=== PATIENT | male | born 1965 | race Caucasian/White ===

== ENCOUNTER → 2018-06-19 | Outpatient (CLI) | payer BC ==
[~2018-06-19] MED LIST: TRAM50TA PO; WARF-78 PO
--- NOTE | 2018-06-22 03:06 | RAD ---
MRI left knee without contrast dated 06/19/2018. No comparison available. CLINICAL INDICATION: Knee pain. TECHNIQUE: Routine multiplanar multisequence MR imaging performed. FINDINGS: Moderate tricompartmental hypertrophic change with prominent marginal osteophytes. Thinning and surface irregularity of the articular cartilage throughout. Full-thickness cartilage loss throughout the weightbearing surfaces medial femoral condyle and medial tibial plateau with patchy subchondral edema. There is also moderate cartilage thinning of the medial patellar facet and medial femoral trochlea. Small suprapatellar joint effusion. 3 mm loose body at the posterior medial joint space. Small popliteal cyst. The anterior cruciate ligament is partially visualized and irregular in orientation. There is some increased signal at the intercondylar notch. The PCL is intact. Medial and lateral collateral complexes are intact. Iliotibial band, popliteus tendon and pes anserine complex within normal limits. Quadriceps and patellar tendon are intact. There is mild increased signal within the substance of the proximal patellar tendon. No abnormality of the medial or lateral retinaculum. Horizontal oblique tear posterior horn of medial meniscus there is probable involvement of the meniscal root with possible small meniscal fragment in the region. There is blunted morphology of the posterior horn and body. The medial meniscal body is slightly extruded into the medial gutter. Lateral meniscus is normal in morphology and signal. IMPRESSION: 1. Complex tear posterior horn/body of medial meniscus 2. Moderate tricompartmental degenerative arthrosis and chondral malacia. There is full-thickness cartilage loss throughout the medial compartment. 3. Small joint effusion and small popliteal cyst. Probable small loose body at the posterior joint space. 4. Ill-definition of the anterior cruciate ligament which could be related to chronic tear and/or severe mucoid degeneration. Correlate with physical exam findings. Electronically signed by: Issa Morales MD (06/22/2018 3:03 AM) [facility]
== END | disposition home or self-care (01) ==
LOC: MRI 15:29
PROVIDERS: ATTEND Orthopaedic Surgery
DX: M17.12 Unilateral primary osteoarthritis, left knee (principal); M25.462 Effusion, left knee; M71.22 Synovial cyst of popliteal space [Baker], left knee; M25.762 Osteophyte, left knee; R60.0 Localized edema
CPT/HCPCS: 73721

== ENCOUNTER → 2018-08-10 | Outpatient (CLI) | payer BC ==
[2018-08-10 09:06] LABS: BILIRUBIN,URINE NEGATIVE (NEG); CLARITY,URINE CLEAR; COLOR,URINE YELLOW; NITRITE,URINE NEGATIVE (NEG); PROTEIN,URINE NEGATIVE (NEG-TRACE); UROBILINOGEN,URINE 0.2 mg/dL (0.2 mg/dL)
[2018-08-10 09:30] LABS: BACTERIA,URINE 0 /HPF (0-FEW); RBC,URINE 0 /HPF (0-2); SQUAMOUS EPITHELIAL CELL,UR MANY /LPF; WBC,URINE OCC /HPF (0-4)
[2018-08-10 10:00] LABS: BASO % 0 % (0-3); EOS # 0.2 x10^3/uL (0.0-0.7); EOS % 3 % (0-3); HEMATOCRIT 48.1 % (39.0-53.0); HEMOGLOBIN 16.2 g/dL (13.0-17.5); LYMPH # 1.4 x10^3/uL (1.0-4.8); LYMPH % 22 % (24-48); MEAN CORPUSCULAR HEMOGLOBIN 32 pg (25-35); MEAN CORPUSCULAR HGB CONC 34 g/dL (31-37); MEAN CORPUSCULAR VOLUME 95 fL (79-100); MONO # 0.6 x10^3/uL (0.0-1.1); MONO % 9 % (0-9); NEUT # 4.4 x10^3uL (1.8-7.7); NEUT % 66 % (31-73); PLATELET COUNT 206 x10^3/uL (140-400); RED BLOOD COUNT 5.04 x10^6/uL (4.30-5.70); RED CELL DISTRIBUTION WIDTH 13.6 % (11.5-14.5); WHITE BLOOD COUNT 6.6 x10^3/uL (4.0-11.0)
[2018-08-10 10:11] LABS: PROTHROMBIN TIME PATIENT 13.1 SEC (11.7-14.0)
[2018-08-10 10:12] LABS: CALCIUM 9.3 mg/dL (8.5-10.1); CREATININE 1.1 mg/dL (0.7-1.3); GFR 70.3; POTASSIUM 4.5 mmol/L (3.5-5.1)
--- NOTE | 2018-08-10 13:56 | EKG ---
[facility] [address] [place] [address] Test Date: 2018-08-10 Test Time: 13:33:37 Pat Name: MARVEL AVENDANO Department: Room: Gender: M Senior Technical Manager: AT : 1965 Requested By: JOELLEN CRAVEN Order Number: [id number] Reading MD: Roverto Ramirez MD Measurements Intervals [place] Rate: 76 P: 48 IA: 154 QRS: 9 QRSD: 92 T: 37 QT: 334 QTc: 379 Interpretive Statements SINUS RHYTHM Electronically Signed On 08-13-2018 11:09:10 CDT by Roverto Ramirez MD
--- NOTE | 2018-08-10 17:24 | RAD ---
CHEST PA LATERAL Technique: PA and lateral views of the chest were obtained. Clinical History: PRE OP LT KNEE REPLACEMENT ON 08/25/18, PT IS A SMOKER Comparison: None. Findings: The heart and pulmonary vasculature appear within normal limits. The lungs are clear. The pleural margins are clear. Impression: No acute chest process is seen. Electronically signed by: Guille Lacy III, MD (08/10/2018 5:21 PM) [facility]
== END | disposition home or self-care (01) ==
LOC: SURGPAT 14:25
PROVIDERS: ATTEND Orthopaedic Surgery
DX: Z01.818 Encounter for other preprocedural examination (principal); Z87.891 Personal history of nicotine dependence
CPT/HCPCS: 36415; 71046; 80048; 81001; 82040; 82306; 85025; 85610; 85651; 85730; 87641; 93005

== ENCOUNTER 2018-08-25 06:04 | Inpatient (IN) | payer BC ==
[~2018-08-25] VITALS: Ht 175.3 cm; Wt 102.1 kg
[2018-08-25] VITALS (9 sets, daily range): BP systolic 114–140; BP diastolic 80–98
[~2018-08-25 06:04] MED LIST changes: +MORPHINE SULFATE 5 MG, KETOROLAC 30MG VIAL 30 MG, ROPIVacaine 0.5% PF 60 ML, EPINEPHrin... INT ART ONE; -TRAM50TA PO; +TRANEXAMIC ACID 1,000 MG in IV NORMAL SALINE 50ML 50 ML INJ ONE; -WARF-78 PO
[2018-08-25] MEDS ORDERED: MELOXICAM 7.5 MG TABLET PO ONE (06:54)
[2018-08-25] MEDS ORDERED: HYDROcodone/APAP 7.5/325MG 1 TAB TABLET ONE (06:55)
[2018-08-25] MEDS ORDERED: IV RINGERS,LACTATED 1000ML 1,000 ML IV SCH (07:00)
[2018-08-25] MEDS ORDERED: fentaNYL PF VIAL 100 MCG/2 ML VIAL IV PRN ×2 (07:00→07:45)
[2018-08-25] MEDS ORDERED: MORPHINE SULFATE 2 MG/ML VIAL. IV PRN ×2 (07:00→07:45)
[2018-08-25] MEDS ORDERED: PROCHLORPERAZINE 10 MG/2 ML VIAL. IV PRN (07:00)
[2018-08-25] MEDS ORDERED: HYDROmorphone 2 MG/ML VIAL IV PRN (07:00)
[2018-08-25] MEDS ORDERED: ONDANSETRON PF 4 MG/2 ML VIAL. IV PRN (07:00)
[2018-08-25] MEDS ORDERED: ROCURONIUM 50 MG/5 ML VIAL. ONE (07:14)
[2018-08-25] MEDS ORDERED: fentaNYL PF VIAL 100 MCG/2 ML VIAL ONE ×2 (07:14→10:26)
[2018-08-25] MEDS ORDERED: ONDANSETRON PF 4 MG/2 ML VIAL. ONE (07:14)
[2018-08-25] MEDS ORDERED: LIDOCAINE 2% PF 5 ML VIAL. ONE (07:14)
[2018-08-25] MEDS ORDERED: PROPOFOL 20 ML IV ONE (07:14)
[2018-08-25] MEDS ORDERED: MIDAZOLAM HCL/PF 2 MG/2 ML VIAL. ONE (07:14)
[2018-08-25] MEDS ORDERED: DEXAMETHASONE SOD PHOS 4 MG/ML VIAL ONE ×2 (07:14→07:15)
[2018-08-25] MEDS ORDERED: HYDROcodone/APAP 7.5/325MG 1 TAB TABLET PO ONE (07:30)
[2018-08-25] MEDS ORDERED: diphenhydrAMINE 50 MG/ML VIAL IV PRN (07:45)
[2018-08-25] MEDS ORDERED: 0.9 % SODIUM CHLORIDE 10 ML DISP.SYRIN. IV PRN (07:45)
[2018-08-25] MEDS ORDERED: METOCLOPRAMIDE HCL 10 MG/2 ML VIAL. IV PRN (07:45)
[2018-08-25] MEDS ORDERED: CALCIUM CARBONATE 500 MG TAB.CHEW PO PRN (07:45)
[2018-08-25] MEDS ORDERED: DEXTROSE 50% 25 GM / 50ML DISP.SYRIN. IV PRN (07:45)
[2018-08-25] MEDS ORDERED: PROCHLORPERAZINE 5 MG TABLET. PO PRN (07:45)
[2018-08-25] MEDS ORDERED: ZOLPIDEM 5 MG TABLET. PO PRN (07:45)
[2018-08-25] MEDS ORDERED: TRANEXAMIC ACID 1,000 MG in IV NORMAL SALINE 50ML 50 ML INJ ONE (08:00)
--- NOTE | 2018-08-25 08:14 | PREOP HP ---
DATE OF SERVICE: 08/25/2018 CHIEF COMPLAINT: Left knee DJD and pain. HISTORY: The patient is well known to me from previous nonoperative treatment of an ACL injury with bracing many years ago. He has ongoing left knee pain, bothers him with increased activities and he notes pain, swelling and instability. Bracing initially was effective for him, but is not now. 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 PAST MEDICAL AND FAMILY HISTORY: He denies any significant past medical or family history. SOCIAL HISTORY: Denies alcohol or drug use, some smoking. MEDICATIONS: No medications. ALLERGIES: No known drug allergies. REVIEW OF SYSTEMS: Denies any chest pain, fever, chills, constitutional symptoms of any type aside from the left knee pain. PHYSICAL EXAMINATION: GENERAL: Height 69, weight 225, BMI 33. VITAL SIGNS: Stable per his admission note, temp afebrile. HEENT: Atraumatic, normocephalic. HEART: Regular rate and rhythm. LUNGS: Clear to auscultation bilaterally. ABDOMEN: Benign. EXTREMITIES: Examination of the left knee reveals varus more so on the left than on the right. He has no flexion contracture. He does have chronic ACL insufficiency with increased anterior drawer and Dalila as well as a pivot shift demonstrating instability with medial compartment tenderness, exacerbated by Ben's testing and he has some medial collateral ligament pseudolaxity, slight joint line tenderness over the contralateral knee, mild patellofemoral crepitus bilaterally, normal alignment and stability of bilateral hips and ankles. 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 TREATMENT PLAN: I went over with him previously risks, benefits, postoperative course of total knee arthroplasty. He has basically exhausted his nonoperative treatment options at this point. Furthermore, he is an excellent candidate based on just his fitness and so forth. I did go over with him that wear of his knee is really dependent on weight, activity level and specific aggravating high impact activities, which I would suggest that he avoid. We covered the possibility of continued pain, infection, nerve or blood vessel damage, medical or other anesthetic complications among others. All his questions were answered. He wishes to proceed with total knee arthroplasty, which will include [facility] admission to follow today. JOELLEN CRAVEN MD DR: BENITO/phill JOB#: [id number] / [id number]
[2018-08-25] MEDS ORDERED: SEVOFLURANE > 120 MINUTES. IH ONE (08:27)
[2018-08-25] MEDS ORDERED: MELOXICAM 7.5 MG TABLET PO SCH (09:00)
[2018-08-25] MEDS: fentaNYL PF VIAL 100 MCG/2 ML VIAL IV PRN ×2 (10:21→10:31)
--- NOTE | 2018-08-25 10:47 | RAD ---
Left Knee: 08/25/2018 7:37 AM. Reason for study: Postoperative. Comparison: Left knee radiograph June 15, 2018 Technique: Two views of the left knee are obtained. Findings: There are findings consistent with recent left total knee arthroplasty, with hardware in good alignment and position. Immediate postsurgical changes within the regional soft tissues are noted. No complications are evident. Tiny linear calcifications are identified in the infrapatellar fat pad. Impression: Status post left total knee arthroplasty. Electronically signed by: Janette Garcia MD (08/25/2018 10:44 AM) [facility]
--- NOTE | 2018-08-25 10:56 | NUR ---
Admitted to unit by bed from PACU. Pt wide awake. Left knee elevated on pillow with ice packs. Left knee dressing intact with JOSE L, IAC and Hemovac drain. Pt able to wiggle toes easily, warm touch and pedal pulses + bilaterally. ONESIMO on right leg and OSVALDO's on bilaterally. O2 at 2l per n/c. Oriented to room and controls. Side rails up x's 2 with call light in reach. Mother and daughter at bedside. Cont. monitor.
[2018-08-25 11:08] LABS: PROTHROMBIN TIME PATIENT 12.2 SEC (11.7-14.0)
[2018-08-25] MEDS: ONDANSETRON PF 4 MG/2 ML VIAL. IV SCH ×2 (12:00→17:35)
[2018-08-25] MEDS: ONDANSETRON ODT 4 MG TAB.RAPDIS. PO SCH ×2 (12:00→17:35)
[2018-08-25] MEDS: IV NORMAL SALINE 1000ML BAG 1,000 ML IV SCH (14:17)
[2018-08-25] MEDS ORDERED: WARFARIN 7.5 MG TABLET. PO ONE (16:00)
--- NOTE | 2018-08-25 16:18 | NUR ---
Hemovac drain had 260cc clamp to slow down drainage. Cont. monitor
[2018-08-25] MEDS: FERROUS SULFATE 325 MG TABLET. PO SCH (16:58)
[2018-08-25] MEDS: KETOROLAC 30MG VIAL 30 MG, BUPIVACAINE MPF 0.25% 20 ML, EPINEPHrine 0.5 MG in TOTAL VOL... INT ART SCH (17:33)
--- NOTE | 2018-08-25 17:41 | PDOC4 ---
Operative Note Operative Note Date of surgery: 08/25/2018 Preoperative diagnosis: Degenerative joint disease left knee Postoperative diagnosis: Same Operative procedure: Left total knee arthroplasty Surgeon: Chen Assist: Vinnie Ayon Anesthesia: Gen. Estimated blood loss: 50 mL Complications: None Drains/catheters: Hemovac and pain catheter intra-articular Specimens: Cartilage surfaces to pathology Operative indications: Please see my preoperative note and clinic evaluation for detailed preoperative indications and note that we covered risks benefits postoperative course of total knee arthroplasty including the possibility of infection continued pain premature wear or loosening nerve or blood vessel damage medical or other anesthetic complications among others he agrees to proceed with surgical evaluation and treatment. Operative text: Patient was identified procedure verified patient placed in the supine position on the operating table. After adequate amounts of general anesthesia were administered the left lower extremity was prepped and draped in standard sterile fashion with a thigh tourniquet. After timeout was performed patient procedure identified and verified the left lower extremity was exsanguinated with Esmarch bandage tourniquet inflated to 350 mmHg and a midline incision was made with a medial parapatellar approach. Patella was everted and fat pad was excised. Intramedullary guide was placed and a 5 distal standard cut was made. Femoral sizing was carried out with posterior referencing and a size 8 cutting block was placed to cut the anterior posterior and chamfer cuts. Extra medullary tibial cutting guide was then placed and ligament balancing resulted in downsizing to a size 7 femoral component and re-cutting due to significant tightness in flexion. After adequate ligament balance was obtained a trial size 6 journey baseplate trial was used with a 11 mm spacer with excellent ligament balance in flexion extension varus and valgus patella was then cut to accommodate a resurfacing 35 mm patella which was medialized lateral patellar bone was removed with a saw and a chamfered fashion to prevent any bony contact. Excellent patellofemoral tracking stability and motion were noted throughout. Trial components were removed thorough irrigation carried out normal saline solution bleeding points were controlled by electrocautery and the following components were cemented in place with polymethylmethacrylate cement: A size 6 journey nonporous tibial baseplate a size 7 left cruciate retaining journey 2 Oxinium femoral component and a 35 mm resurfacing round patellar component. An 11 mm spacer was placed with the knee in extension after removing any excess cement. After cement was dry spacer was removed thorough irrigation carried out normal saline solution and a 11 mm journey 2 articular insert was snapped in place Hemovac drain and pain catheter were placed pain catheter mixture was injected throughout the joint capsule and surrounding tissues retinaculum closure with #2 Ethibond and #1 strata fix suture in a running fashion. Subcutaneous closure with buried Vicryl suture subcuticular 3-0 strata fix Monocryl renata dressing with Acticoat was placed toes were noted be warm pink following deflation of tourniquet patient returned recovery room in stable condition having tolerated procedure well JOELLEN CRAVEN MD August 25, 2018 17:41
[2018-08-26 03:00] VITALS: BP 122/80
[2018-08-26] MEDS: KETOROLAC 30MG VIAL 30 MG, BUPIVACAINE MPF 0.25% 20 ML, EPINEPHrine 0.5 MG in TOTAL VOL... INT ART SCH (05:13)
[2018-08-26] MEDS: ONDANSETRON PF 4 MG/2 ML VIAL. IV SCH ×2 (05:13)
[2018-08-26] MEDS: ONDANSETRON ODT 4 MG TAB.RAPDIS. PO SCH ×2 (05:14)
[2018-08-26] MEDS: traMADol 50 MG TABLET PO SCH ×4 (05:27→18:00)
[2018-08-26] MEDS ORDERED: GABAPENTIN 100 MG CAPSULE. PO SCH (06:00)
[2018-08-26] MEDS ORDERED: MAGNESIUM HYDROXIDE 2,400 MG/30 ML ORAL.SUSP. PO PRN (06:00)
[2018-08-26 06:34] LABS: HEMATOCRIT 41.5 % (39.0-53.0); HEMOGLOBIN 14.2 g/dL (13.0-17.5)
[2018-08-26 06:36] VITALS: BP 117/88
[2018-08-26 06:36] LABS: PROTHROMBIN TIME PATIENT 15.1 SEC (11.7-14.0)
[2018-08-26] MEDS: SENNOSIDES/DOCUSATE 8.6/50MG TABLET. PO SCH (08:36)
[2018-08-26] MEDS: MELOXICAM 7.5 MG TABLET PO SCH (08:36)
[2018-08-26] MEDS: ACETAMINOPHEN 500 MG TABLET PO SCH ×3 (08:36→20:48)
[2018-08-26] MEDS: MULTIVITAMIN with MINERAL TABLET. PO SCH (08:36)
[2018-08-26] MEDS: FERROUS SULFATE 325 MG TABLET. PO SCH ×2 (08:36→16:59)
[2018-08-26] MEDS: IV NORMAL SALINE 1000ML BAG 1,000 ML IV SCH (11:00)
[2018-08-26] MEDS ORDERED: ONDANSETRON ODT 4 MG TAB.RAPDIS. PO PRN (12:00)
[2018-08-26] MEDS ORDERED: ONDANSETRON PF 4 MG/2 ML VIAL. IV PRN (12:00)
--- NOTE | 2018-08-26 13:08 | NUR ---
Pharmacy Warfarin Dosing Note S:Pharmacy consulted to assist with anticoagulation therapy started 08/25/18 with target INR: 1.6 - 2.5 O:MARVEL AVENDANO is a 53 year old M with TKA LABS: Last INR: 1.2 Last HGB: 14.2 Last HCT: 41.5 Last PLT: - Last dose of 7.5 mg given on 08/25/18 at Previous Regimen: Vitamin K given: Drug Interaction Changes: Ongoing Drug Interactions: A:INR of 1.2 is below desired range. Target range for this patient is: 1.6 - 2.5 P: Warfarin dose: 5 mg Today at 1600 Bridge Therapy: None Next INR due TOMORROW. Pharmacy anticoagulation service will continue to follow. [facility], 08/26/18 [id number]
[2018-08-26] MEDS ORDERED: WARFARIN 3 MG TABLET. PO ONE (16:00)
[2018-08-26] MEDS ORDERED: BISACODYL 10 MG SUPP.RECT. PR PRN (16:00)
--- NOTE | 2018-08-26 17:48 | PDOC ---
PROGRESS NOTES Subjective Subjective Problems overnight: Sylvester says his left knee feels great he is getting around very well has no pain whatsoever and is very pleased with his performance in activities so far Objective Vital Signs Vital Signs Date Time Temp Pulse Resp B/P (MAP) Pulse Ox O2 Delivery O2 Flow Rate FiO2 08/26/18 15:11 Room Air 08/26/18 06:36 98.7 93 18 117/88 (98) 92 98.7 08/25/18 12:00 2.0 Physical Exam On examination he has excellent early range of motion patellofemoral tracking ligament balance distal neurovascular status intact, Hemovac output remains somewhat high at about 180ml last shift Labs Laboratory Tests Test 08/25/18 07:00 08/26/18 05:30 Prothrombin Time 12.2 SEC (11.7-14.0) 15.1 SEC (11.7-14.0) Prothromb Time International Ratio 0.9 (0.8-1.1) 1.2 (0.8-1.1) Activated Partial Thromboplast Time 27 SEC (24-38) Hemoglobin 14.2 g/dL (13.0-17.5) Hematocrit 41.5 % (39.0-53.0) Mean Corpuscular Hemoglobin Concent 34 g/dL (31-37) Laboratory Tests Test 08/26/18 05:30 Hemoglobin 14.2 g/dL (13.0-17.5) Hematocrit 41.5 % (39.0-53.0) Mean Corpuscular Hemoglobin Concent 34 g/dL (31-37) Prothrombin Time 15.1 SEC (11.7-14.0) Prothromb Time International Ratio 1.2 (0.8-1.1) Imaging Postop x-rays show excellent alignment sizing of the total knee arthroplasty on the left cruciate retaining Assessment Assessment POD# [1], S/P [left total knee arthroplasty] Plan Plan of Care Continue mobilization, Coumadin anti coagulation Maintain Hemovac as he is having significant ongoing drainage JOELLEN CRAVEN MD August 26, 2018 17:48
[2018-08-26 18:12] VITALS: BP 120/88
[2018-08-27] MEDS: oxyCODONE IR 5 MG TABLET PO PRN ×2 (01:47→09:48)
--- NOTE | 2018-08-27 02:09 | NUR ---
Patient going to toilet w/o calling for assistance. "Ohh, my Day 3 is here." C/o soreness in knee and swelling. Ice pack placed, very little swelling noted, refused leg elevation. Roxicodone given.
[2018-08-27] MEDS: ACETAMINOPHEN 500 MG TABLET PO SCH ×4 (03:00→21:00)
[2018-08-27 04:40] LABS: HEMATOCRIT 43.6 % (39.0-53.0); HEMOGLOBIN 14.5 g/dL (13.0-17.5)
[2018-08-27 05:00] VITALS: BP 122/84
[2018-08-27 05:04] LABS: PROTHROMBIN TIME PATIENT 16.8 SEC (11.7-14.0)
[2018-08-27] MEDS: traMADol 50 MG TABLET PO SCH ×4 (06:27→17:04)
[2018-08-27] MEDS: MULTIVITAMIN with MINERAL TABLET. PO SCH (08:09)
[2018-08-27] MEDS: SENNOSIDES/DOCUSATE 8.6/50MG TABLET. PO SCH (08:10)
[2018-08-27] MEDS: MELOXICAM 7.5 MG TABLET PO SCH (08:10)
[2018-08-27] MEDS: FERROUS SULFATE 325 MG TABLET. PO SCH ×2 (08:10→17:02)
[2018-08-27] MEDS: IV NORMAL SALINE 1000ML BAG 1,000 ML IV SCH (11:00)
--- NOTE | 2018-08-27 11:07 | NUR ---
Pharmacy Warfarin Dosing Note S:Pharmacy consulted to assist with anticoagulation therapy started 08/25/18 with target INR: 1.6 - 2.5 O:MARVEL AVENDANO is a 53 year old M with TKA LABS: Last INR: 1.4 Last HGB: 14.5 Last HCT: 43.6 Last PLT: - Last dose of 3 mg given on 08/26/18 at Previous Regimen: Vitamin K given: Drug Interaction Changes: Ongoing Drug Interactions: A:INR of 1.4 is below desired range. Target range for this patient is: 1.6 - 2.5 P: Warfarin dose: 5 mg Today at 1600 Bridge Therapy: None Next INR due TOMORROW. Pharmacy anticoagulation service will continue to follow. [facility], 08/27/18 [id number]
--- NOTE | 2018-08-27 15:06 | PATHOLOGY ---
[facility] Accession Number: [id number] . 01 Material submitted: . knee - LEFT KNEE BONE AND TISSUE. Modifiers: left . 01 Clinical history: . Chronic rupture of ACL, left knee, posttraumatic osteoarthritis left knee . 02 Diagnosis: Segments of bone and soft tissue, left total knee arthroplasty: - Advanced degenerative arthritis. (JPM/db; 08/27/2018) [facility]/08/27/2018 . 02 Electronically signed: . Tomas Zheng MD, Pathologist NPI- [id number] . 01 Gross description: . Received in formalin labeled "Sylvester Barron, left knee bone and tissue ", are multiple segments of bone including apparent tibia plateau, patella and soft tissue measuring 10.7 x 7.0 x 2.5 cm in aggregate. Meniscus is not identified. Several bone segments are partially covered by pitted goldman and granular articular cartilage with areas of eburnation. Osteophytes are present. Surgical Elastic Knitter sections submitted in A1 after decalcification. ([facility]; 08/25/2018) [facility] . 02 Pathologist provided ICD-10: M17.12 . 02 CPT . 308202, 428762 Specimen Comment: A courtesy copy of this report has been sent to Specimen Comment: [phone]. Specimen Comment: Report sent to Performed at: 01 [facility] [address], [place] [id number] MD Darwin Santamaria MD Phone: [phone] Performed at: 02 [facility] [address] [place], [place] [id number] MD Tomas Zheng MD Phone: [phone]
[2018-08-27] MEDS ORDERED: WARFARIN 5 MG TABLET. PO ONE (16:00)
[2018-08-27 18:20] VITALS: BP 106/80
[2018-08-28] MEDS: ACETAMINOPHEN 500 MG TABLET PO SCH ×2 (03:00→07:18)
[2018-08-28 04:52] LABS: PROTHROMBIN TIME PATIENT 17.1 SEC (11.7-14.0)
[2018-08-28] MEDS: traMADol 50 MG TABLET PO SCH ×3 (06:00→12:05)
[2018-08-28 06:17] LABS: HEMATOCRIT 38.2 % (39.0-53.0); HEMOGLOBIN 13.1 g/dL (13.0-17.5)
[2018-08-28 06:23] VITALS: BP 112/81
[2018-08-28] MEDS: MULTIVITAMIN with MINERAL TABLET. PO SCH (07:16)
[2018-08-28] MEDS: FERROUS SULFATE 325 MG TABLET. PO SCH (07:17)
[2018-08-28] MEDS: MELOXICAM 7.5 MG TABLET PO SCH (07:17)
[2018-08-28] MEDS: oxyCODONE IR 5 MG TABLET PO PRN (07:18)
[2018-08-28] MEDS: SENNOSIDES/DOCUSATE 8.6/50MG TABLET. PO SCH (07:18)
--- NOTE | 2018-08-28 10:19 | NUR ---
Pharmacy Warfarin Dosing Note S:Pharmacy consulted to assist with anticoagulation therapy started 08/25/18 with target INR: 1.6 - 2.5 O:MARVEL AVENDANO is a 53 year old M with TKA LABS: Last INR: 1.4 Last HGB: 13.1 Last HCT: 38.2 Last PLT: - Last dose of 5 mg given on 08/27/18 at 1702 Previous Regimen: Vitamin K given: Drug Interaction Changes: Ongoing Drug Interactions: A:INR of 1.4 is below desired range. Target range for this patient is: 1.6 - 2.5 P: Warfarin dose: 5 mg Prior to Discharge and daily Bridge Therapy: None Next INR due Friday08/31/18 to be drawn at outpatient lab Pharmacy anticoagulation service will continue to follow. Jenni Collier RPH, 08/28/18 [id number]
[2018-08-28] MEDS ORDERED: WARFARIN 5 MG TABLET. PO SCH (13:00)
[2018-08-28] MEDS ORDERED: WARF-78 PO (14:26)
[2018-08-28] MEDS ORDERED: TRAM50TA PO (14:27)
--- NOTE | 2018-08-28 15:00 | NUR ---
Patient left in a wheelchair with his daughter at his side and all of his belongings. Discharge education completed by this nurse, therapy, and the doctor prior to discharge. Script for tramadol given to the patient and education given by pharmacy on his Coumadin dosing. No concerns noted upon discharge.
--- NOTE | 2018-08-28 16:29 | PDOC ---
PROGRESS NOTES Subjective Subjective Problems overnight: Delayed progress note from 08/27/2018, reports a lot more soreness today than yesterday due to his increased activity still getting around well with physical therapy Objective Vital Signs Vital Signs Date Time Temp Pulse Resp B/P (MAP) Pulse Ox O2 Delivery O2 Flow Rate FiO2 08/28/18 13:05 Room Air 08/28/18 06:23 98.3 84 18 112/81 (91) 95 98.3 08/27/18 20:00 2.0 Physical Exam Judson dressing has slight spotting no redness or erythema he has excellent range of motion good patellofemoral tracking intact distal neurovascular status Labs Laboratory Tests Test 08/27/18 04:00 08/28/18 04:30 Hemoglobin 14.5 g/dL (13.0-17.5) 13.1 g/dL (13.0-17.5) Hematocrit 43.6 % (39.0-53.0) 38.2 % (39.0-53.0) Mean Corpuscular Hemoglobin Concent 33 g/dL (31-37) 34 g/dL (31-37) Prothrombin Time 16.8 SEC (11.7-14.0) 17.1 SEC (11.7-14.0) Prothromb Time International Ratio 1.4 (0.8-1.1) 1.4 (0.8-1.1) Laboratory Tests Test 08/28/18 04:30 Hemoglobin 13.1 g/dL (13.0-17.5) Hematocrit 38.2 % (39.0-53.0) Mean Corpuscular Hemoglobin Concent 34 g/dL (31-37) Prothrombin Time 17.1 SEC (11.7-14.0) Prothromb Time International Ratio 1.4 (0.8-1.1) Assessment Assessment POD# [2], S/P [left total knee arthroplasty] Plan Plan of Care Continue mobilize with physical therapy, Coumadin anticoagulation, likely home with outpatient physical therapy on discharge JOELLEN CRAVEN MD August 28, 2018 16:29
--- NOTE | 2018-08-28 19:41 | DS ---
DATE OF DISCHARGE: 08/28/2018 PRINCIPAL DIAGNOSIS: Degenerative joint disease of left knee. PROCEDURE: Left total knee arthroplasty. DISPOSITION: Home with outpatient physical therapy. ACTIVITIES: Standard total knee precautions, weightbearing as tolerated, maintain JOSE L dressing. FOLLOWUP: With Dr. Siddiqui in two weeks. DISCHARGE MEDICATIONS: Include tramadol 50 mg p.o. q.4h. p.r.n., dispense #80; Coumadin as directed by Anticoagulation Clinic, resume preoperative medications. BRIEF DESCRIPTION OF HOSPITAL COURSE: The patient underwent uncomplicated left total knee arthroplasty. He had an excellent first day with reported no pain, overdid it somewhat that day and had increased pain on postoperative day #2 but nevertheless maintained a good progress through physical therapy and on postoperative day #3, maintained all his transfers, activities of daily living and ambulation and was discharged home in stable condition. JOELLEN SIDDIQUI MD DR: BENITO/phill JOB#: [id number] / [id number]
== END 2018-08-28 15:00 | disposition home or self-care (01) | DRG 470 ==
LOC: OPSVCIP 06:04 → 4 SOUTHEST 10:56
PROVIDERS: ADMIT Orthopaedic Surgery; ATTEND Orthopaedic Surgery
PROC: 0SRD069 Replacement of Left Knee Joint with Oxidized Zirconium on Polyethylene Synthetic Substitute, Cemented, Open Approach (ICD-10-PCS; principal; 2018-08-25 07:30)
DX: M17.32 Unilateral post-traumatic osteoarthritis, left knee (principal); S83.512S Sprain of anterior cruciate ligament of left knee, sequela; X58.XXXS Exposure to other specified factors, sequela
CPT/HCPCS: 36415; 73560; 85014; 85018; 85610; 85730; 86850; 86900; 86901; 88304; 88311; A7015; C1713; J0171; J0696; J1100; J1885; J2001; J2250; J2270; J2405; J2704; J2795; J3010; J3490; J7030; J7120; 97116; 97150; 97530; 97535; C1769